=== PATIENT | male | born 1955 | race Asian ===

== ENCOUNTER 2017-01-20 07:40 | Day surgery (SDC) | payer OTHER ==
[2017-01-20] MEDS ORDERED: SUBLIMAZE IV ONE (08:45)
[2017-01-20] MEDS ORDERED: VERSED IV ONE (08:45)
[2017-01-20 08:51] LABS: Basophils % (Auto) 0.7 % (0.0-1.8); Eosinophils % (Auto) 2.7 % (0.0-4.3); Hematocrit 41.1 % (35.5-45.6); Hemoglobin 13.9 gm/dl (11.8-15.2); Mean Corpuscular HGB Conc 34 % (32-34); Mean Corpuscular Hemoglobin 30 pg (28-32); Mean Corpuscular Volume 89 fl (84-94); Platelet Count 166 K/mm3 (140-440); Red Blood Count 4.64 M/mm3 (3.65-5.03); Red Cell Distribution Width 12.5 % (13.2-15.2); White Blood Count 4.5 K/mm3 (4.5-11.0)
[2017-01-20] MEDS ORDERED: HURRICAINE ONE 20% TOPICAL SPRAY MM NR (09:00)
[2017-01-20] MEDS ORDERED: NACL 0.9% 500 ML 500 ML IV SCH (09:00)
[2017-01-20 09:02] LABS: INR 0.89 (0.87-1.13)
[2017-01-20 09:03] LABS: Partial Thromboplastin Time 28.8 Sec. (24.2-36.6)
[2017-01-20 09:07] LABS: Anion Gap 13 mmol/L; Blood Urea Nitrogen 16 mg/dL (9-20); Carbon Dioxide 30 mmol/L (22-30); Chloride 104.2 mmol/L (98-107); Glucose 83 mg/dL (75-100); Potassium 4.1 mmol/L (3.6-5.0); Sodium 143 mmol/L (137-145)
--- NOTE | 2017-01-20 10:18 | Short Stay Summary ---
Short Stay Documentation Date of service: 01/20/17 - History H&P: obtained from office - Allergies and Medications Current Medications: Allergies No Known Allergies Allergy (Unverified 01/20/17 07:41) Home Medications Medication Instructions Recorded Confirmed Last Taken Type Aspirin EC [Aspirin Enteric Coated 81 mg PO DAILY 01/20/17 01/20/17 01/18/17 History TAB] 81mg Simvastatin [Zocor TAB] 20 mg PO QHS 01/20/17 01/20/17 01/19/17 History Active Medications Benzocaine (Hurricaine One 20% Topical Bridger) 3 spray MM PREOP NR Stop: 01/20/17 12:00 Sodium Chloride (Nacl 0.9% 500 Ml) 500 mls @ 50 mls/hr IV DIRECT LAYLA Last Admin: 01/20/17 09:11 Dose: 50 mls/hr - Physical exam General appearance: no acute distress Integumentary: no rash HEENT: Atraumatic Lungs: Clear to auscultation Breasts: deferred Heart: Regular rate Gastrointestinal: normal Male Genitourinary: deferred Female Genitourinary: deferred Rectal Exam: deferred Extremities: no ischemia Neurological: Normal gait - Brief post op/procedure progress note Date of procedure: 01/20/17 Pre-op diagnosis: TIA Post-op diagnosis: same Procedure: THEODORA Anesthesia: MAC Findings: See report Surgeon: EMELY FONG Estimated blood loss: none Pathology: none Condition: stable - Hospital course Hospital course: Uneventful - Disposition Condition at discharge: Good Disposition: DC-01 TO HOME OR SELFCARE Short Stay Discharge Plan Activity: advance as tolerated Weight Bearing Status: Weight Bear as Tolerated Diet: regular Follow up with: JONH VANESSA MD [Primary Care Provider] - 7 Days
[2017-01-20 11:50] VITALS: BP 119/72
--- NOTE | 2017-01-20 13:03 | Cat Scan Report ---
LIMITED CHEST CT SCAN FOR CALCIUM SCORING: History: Palpitations. A limited chest CT scan was carried out for calcium evaluation of the coronary arteries. This dictation is for the non-cardiac portion of the chest which was included. There is no hilar or mediastinal mass seen. The visualized lungs are expanded and clear. There is a 5.9 x 3.4 cm hypodense liver lesion in the superior liver. I suspect this represents a benign lesion such as a hemangioma or FNH. Consider further evaluation with four-phase liver CT or MRI with contrast. IMPRESSION: Unremarkable targeted CT of the lower chest. Liver lesion, see above.
== END 2017-01-20 12:20 | disposition home or self-care (01) ==
LOC: CATHLABREC 07:40
PROVIDERS: ATTEND Internal Medicine
DX: I08.3 Combined rheumatic disorders of mitral, aortic and tricuspid valves (principal); I37.1 Nonrheumatic pulmonary valve insufficiency; E78.5 Hyperlipidemia, unspecified; I10 Essential (primary) hypertension; Z98.890 Other specified postprocedural states; Z87.891 Personal history of nicotine dependence; Z72.89 Other problems related to lifestyle; Z79.899 Other long term (current) drug therapy; Z79.82 Long term (current) use of aspirin
CPT/HCPCS: 36415; 75571; 80048; 85025; 85610; 85730; 93312; 93320; 93325; J2250; J3010; J7040